=== PATIENT | female | born 1955 | race Caucasian/White ===

== ENCOUNTER → 2019-02-03 | Outpatient (CLI) | payer BC ==
--- NOTE | 2019-02-06 09:27 | Diagnostic Imaging Report ---
INDICATION: Routine screening. COMPARISON: 01/27/2018 and 09/10/2016. TECHNIQUE: 2D and 3D bilateral screening mammography was performed with CAD. FINDINGS: Scattered fibroglandular densities are identified bilaterally. Circumscribed nodular densities in the right breast are stable and consistent with benign etiologies. No spiculated mass or malignant appearing microcalcifications are seen. The axillae are unremarkable. IMPRESSION: No mammographic features suspicious for malignancy are identified. ACR BI-RADS Category 2: Benign findings. Result letter will be mailed to the patient. Note: At least 10% of breast cancer is not imaged by mammography. Dictated by: Dictated on workstation # [id number]
== END ==
LOC: RAD 10:25
PROVIDERS: ATTEND Obstetrics & Gynecology
DX: Z12.31 Encounter for screening mammogram for malignant neoplasm of breast (principal)
CPT/HCPCS: 77067

== ENCOUNTER → 2020-02-06 | Outpatient (CLI) | payer BC, MEDICARE ==
--- NOTE | 2020-02-06 11:52 | Diagnostic Imaging Report ---
INDICATION: Postmenopausal female COMPARISON: None FINDINGS: AP Spine L1-L4: [BMD (g/cm2): 1.050] [T-Score: -1.2] [Z-Score: -0.8] [BMD Previous: NA] [BMD % Change: NA] LT Hip Neck: [BMD (g/cm2): 0.799] [T-Score: -1.7] [Z-Score: -1.0] LT Hip Total: [BMD (g/cm2):0.875] [T-Score:-1.1] [Z-Score: -0.7] [BMD Previous: NA] [BMD % Change: NA] RT Hip Neck: [BMD (g/cm2):0.774] [T-Score:-1.9] [Z-Score:-1.2] RT Hip Total: [BMD (g/cm2):0.848] [T-score:-1.3] [Z-Score:-0.9] [BMD Previous:NA] [BMD % Change:NA] *Indicates significant change from prior examination based on 95% confidence level. World Health Organization criteria for BMD interpretation classify patients as Normal (T-score at or above -1.0), Osteopenic (T-score between -1.0 and -2.5) or Osteoporotic (T-score at or below -2.5). LIMITATIONS AND MODIFICATION: None. FRACTURE RISK (FRAX SCORE): The ten year probability of (%): Major Osteoporotic Fracture: [9.4] Hip Fracture: [1.3] IMPRESSION: 1. Osteopenia (Low bone mass). 2. Baseline examination. 3. See below National Osteoporosis Foundation guidelines on when to potentially initiate pharmacologic therapy. Based on the National Osteoporosis Foundation Guidelines, pharmacologic treatment should be initiated in any of the following, unless clinical conditions suggest otherwise: * Any patient with prior fragility fracture of the hip or vertebrae. A spine fracture indicates 5X risk for subsequent spine fracture and 2X risk for subsequent hip fracture. * Osteoporosis (T-score <-2.5). * Postmenopausal women and men age 50 and older with low bone mass/osteopenia (T-score between -1.0 and -2.5) by DXA and 10-year major osteoporotic fracture greater than 20% or a 10-year probability of hip fracture greater than 3%. These fracture risks are supplied above in the FRAX score, if applicable. * Clinician judgement and/or patient preferences may indicate treatment for people with 10-year fracture probabilities above or below these levels. Dictated by: Dictated on workstation # [id number]
--- NOTE | 2020-02-06 14:33 | Diagnostic Imaging Report ---
INDICATION: Routine screening. COMPARISON: 02/03/2019 and 01/27/2018. TECHNIQUE: 2D and 3D bilateral screening mammography was performed with CAD. FINDINGS: Both breasts are heterogeneously dense, limiting the sensitivity of mammography. The nodular densities noted in both breasts appear to be stable. No spiculated mass or malignant appearing microcalcifications are seen. The axillae are unremarkable. IMPRESSION: No mammographic features suspicious for malignancy are identified. ACR BI-RADS Category 2: Benign findings. Result letter will be mailed to the patient. Note: At least 10% of breast cancer is not imaged by mammography. Dictated by: Dictated on workstation # [id number]
== END ==
LOC: RAD 09:30
PROVIDERS: ATTEND Family Medicine
DX: Z12.31 Encounter for screening mammogram for malignant neoplasm of breast (principal); M85.80 Other specified disorders of bone density and structure, unspecified site; Z78.0 Asymptomatic menopausal state
CPT/HCPCS: 77063; 77067; 77080

== ENCOUNTER → 2020-02-08 | Outpatient (CLI) | payer MEDICARE, OTHER ==
--- NOTE | 2020-02-08 08:45 | Diagnostic Imaging Report ---
INDICATION: Right upper quadrant abdominal pain Gallbladder sonography performed in the routine fashion. The liver shows normal echogenicity with no focal lesions. Gallbladder is unremarkable with no stones or wall thickening. Common duct cannot be visualized, do not appear dilated. The intrahepatic ducts are not dilated. Pancreas is partially obscured by overlying gas. Visualized portions of the aorta and IVC are normal. Right kidney measured 10.8 cm in length and was unremarkable. Portal vein is patent with hepatopetal flow. Sonographic Singh sign was negative. There is no ascites. IMPRESSION: Unremarkable gallbladder sonography. Dictated by: Dictated on workstation # [id number]
== END ==
LOC: RAD 07:15
PROVIDERS: ATTEND Family Medicine
DX: R10.11 Right upper quadrant pain (principal)
CPT/HCPCS: 76705

== ENCOUNTER 2020-04-15 05:43 | Outpatient (RCR) | payer MEDICARE, OTHER ==
[~2020-04-15] VITALS: Ht 167.6 cm; Wt 106.8 kg
[2020-04-15] MEDS ORDERED: LISI-556 PO (11:09)
[2020-04-15] MEDS ORDERED: LEVO25TA2 PO (11:09)
== END 2020-04-18 09:08 | disposition home or self-care (01) ==
LOC: PREOP 05:43
PROVIDERS: ATTEND Surgery
DX: Z01.812 Encounter for preprocedural laboratory examination (principal); Z12.11 Encounter for screening for malignant neoplasm of colon; K21.9 Gastro-esophageal reflux disease without esophagitis; Z20.822 Contact with and (suspected) exposure to COVID-19
CPT/HCPCS: 87635

== ENCOUNTER 2020-04-22 07:17 | Day surgery (SDC) | payer MEDICARE, OTHER ==
[~2020-04-22] VITALS: Ht 167.6 cm; Wt 106.8 kg
[~2020-04-22 07:17] MED LIST: LEVO25TA2 PO; LISI-556 PO
[2020-04-22] MEDS ORDERED: LACTATED RINGERS 1,000 ML IV ONE (07:32)
[2020-04-22] MEDS ORDERED: LACTATED RINGERS 1,000 ML IV STA (07:39)
[2020-04-22] MEDS ORDERED: HURRICAINE EXT TUBE (BENZOCAINE) XX PRN (07:45)
[2020-04-22] MEDS ORDERED: LIDOCAINE JELLY 2% 6 ML SYRINGE MM PRN (07:45)
[2020-04-22 07:47] VITALS: BP 140/69
--- NOTE | 2020-04-22 08:19 | Progress Note-Pre Operative ---
Pre-Operative Progress Note H&P Reviewed The H&P was reviewed, patient examined and no changes noted. Time Seen by Provider: 08:13 Date H&P Reviewed: Apr 22, 2020 Time H&P Reviewed: 08:14 Pre-Operative Diagnosis: GERD, Change in bowel, Screening colon ANDREW SÁNCHEZ DO Apr 22, 2020 08:19
[2020-04-22] MEDS ORDERED: PROPOFOL INJECTION 50 ML IV ONE (08:39)
[2020-04-22] MEDS ORDERED: HURRICAINE EXT TUBE (BENZOCAINE) ONE (08:50)
[2020-04-22] MEDS ORDERED: proPOfol 200 MG/20 ML (DIPRIVAN) VIAL IV ONE (09:04)
[2020-04-22 09:25] VITALS: BP 149/71
--- NOTE | 2020-04-22 09:27 | Progress Note-Post Operative ---
Post-Operative Progess Note Surgeon (s)/Vault Clerk (s) Surgeon ANDREW SÁNCHEZ DO Vault Clerk: TEMITOPE Garvin Pre-Operative Diagnosis GERD, Change in bowel, Screening colon Post-Operative Diagnosis Gastritis Esophagitis Hiatal Hernia Diverticula Int hemorrhoids Procedure & Operative Findings Date of Procedure 04/22/20 Procedure Performed/Findings EGD with bx Colon Anesthesia Type IV sedation by AUTOMOTIVE TECHNOLOGY INSTRUCTOR Estimated Blood Loss Estimated blood loss (mL): scant Specimens/Packing Specimens Removed antral bx body of stomach bx GE jxn bx ANDREW SÁNCHEZ DO Apr 22, 2020 09:27
--- NOTE | 2020-04-22 09:28 | Endoscopy Discharge Instruct ---
Endo Procedure/Findings Findings 1.: Gastritis 2.: Fatima's Esophagus 3.: Diverticulosis 4.: Internal Hemorrhoids Discharge Instructions - Activity: You might feel a little sleepy until tomorrow. This is due to the medicine you received to relax you. Until tomorrow, you should: NOT drive a car, operate machinery or power tools. NOT drink any alcoholic beverages. NOT make any important decisions or sign importortant papers. Do not return to work until tomorrow, unless otherwise instructed. Resume previous activities tomorrow. Diet: Start by taking liquids. If you tolerate liquids, advance to solid food. 1.: Colonscopy in 10 years, EGD in 1 year Notify Physician - If you experience excessive bleeding, unusual abdominal pain, fever, or chest pain, contact your doctor immediately. ANDREW SÁNCHEZ DO Apr 22, 2020 09:28
[2020-04-22 09:30] VITALS: BP 139/62
[2020-04-22 09:35] VITALS: BP 137/62
[2020-04-22 09:55] VITALS: BP 135/62
[2020-04-22 09:58] VITALS: BP 135/62
--- NOTE | 2020-04-22 11:52 | Anesthesia-General Post-Op ---
MAC Patient Condition Mental Status/LOC: Same as Preop Cardiovascular: Satisfactory Nausea/Vomiting: Absent Respiratory: Satisfactory Pain: Controlled Complications: Absent Post Op Complications Complications None Follow Up Care/Instructions Patient Instructions None needed. Anesthesiology Discharge Order Discharge Order Patient is doing well, no complaints, stable vital signs, no apparent adverse anesthesia problems. No complications reported per nursing. JEFERSON HERMAN CRNA Apr 22, 2020 11:52
--- NOTE | 2020-04-22 23:22 | OPERATIVE REPORT ---
DATE OF SERVICE: 04/22/2020 PREOPERATIVE DIAGNOSES: Gastroesophageal reflux disease, change in bowel habits as well as screening colonoscopy. POSTOPERATIVE DIAGNOSES: 1. Gastritis. 2. Esophagitis. 3. Hiatal hernia. 4. Diverticula. 5. Internal hemorrhoids. PROCEDURES: 1. EGD with biopsy. 2. Colonoscopy. SURGEON: Riley Escamilla DO BEAD SUPERVISOR: Génesis Hammer MS4. ANESTHESIA: IV sedation by the ELECTRICAL AND INSTRUMENTATION MANAGER. SPECIMEN: Biopsy from the antrum, biopsy from the esophagus as well as from the body of the stomach. BLOOD LOSS: Scant. FLUIDS: Per anesthesia. POSTOPERATIVE CONDITION: Stable. INDICATION FOR PROCEDURE: The patient is a 64-year-old female who has been having some GERD symptoms. She has had change in bowel habits and needs a screening colonoscopy. FINDINGS: The patient had some gastritis, esophagitis and hiatal hernia was about 3 or 4 mm opening in the colon, she had some diverticula and internal hemorrhoids, but nothing else seen. PROCEDURE NOTE: After informed consent was obtained, the patient was brought to the endoscopy suite, placed in bed in left lateral decubitus position. She was administered IV sedation by the ELECTRICAL AND INSTRUMENTATION MANAGER who then monitored her vitals the entire time, heart rate, blood pressure and pulse ox. Started with the EGD, placing scope down the mouth through the esophagus into the stomach. Upon going down, noted some changes at the GE junction, took a picture. Pushed all the way into the duodenum and got to the second and third portion of duodenum, looked normal, took a picture. Pulled back, saw some mild inflammation of the antrum, did a biopsy of the antrum and then did a biopsy of body of stomach, retroflexed the scope, saw a small hiatal hernia and then pulled the scope up into the GE junction, did a biopsy here. Suctioned all the air out of the stomach and then pulled the scope up the esophagus and out the mouth. Switched camera, switched gloves, went down below, started the colonoscopy. Pushed all the way into about [address] in, noted some diverticula, able to get all the way to the cecum, took a picture of appendiceal orifice, then noted the ileocecal valve and then slowly withdrew the scope insufflating to look circumferentially at the mcneil looking at the cecum, up the ascending colon to the hepatic flexure, then down the transverse colon to the splenic flexure, into the descending colon down into the sigmoid and finally into the rectum, retroflexed in the rectal vault, saw some minimal internal hemorrhoids, probably grade I, took a picture of these and then removed the scope. The patient tolerated the procedure, recovered in endoscopy suite. Job ID: [id number] DocumentID: [id number] Dictated Date: 04/22/2020 14:44:52 Spray Worker Date: 04/22/2020 23:21:21 Dictated By: RILEY ESCAMILLA DO
== END 2020-04-22 10:15 | disposition home or self-care (01) ==
LOC: ENDO 07:17
PROVIDERS: ATTEND Surgery
DX: Z12.11 Encounter for screening for malignant neoplasm of colon (principal); K29.50 Unspecified chronic gastritis without bleeding; K21.00 Gastro-esophageal reflux disease with esophagitis, without bleeding; K44.9 Diaphragmatic hernia without obstruction or gangrene; K64.8 Other hemorrhoids; K57.30 Diverticulosis of large intestine without perforation or abscess without bleeding; I10 Essential (primary) hypertension; K21.9 Gastro-esophageal reflux disease without esophagitis; E03.9 Hypothyroidism, unspecified; Z79.899 Other long term (current) drug therapy; Z88.2 Allergy status to sulfonamides
CPT/HCPCS: 43239; G0121; 88305

== ENCOUNTER → 2021-02-17 | Outpatient (CLI) | payer MEDICARE, OTHER ==
[~2021-02-17] MED LIST changes: -LISI-556 PO; +LISI-729 PO
--- NOTE | 2021-02-17 15:18 | Diagnostic Imaging Report ---
INDICATION: Routine screening. COMPARISON: 02/06/2020 and 02/03/2019. TECHNIQUE: 2D and 3D bilateral screening mammography was performed with CAD. FINDINGS: Both breasts are heterogeneously dense, limiting the sensitivity of mammography. Nodular densities in the right breast appear stable. No new mass or malignant appearing microcalcifications are seen. The axillae are unremarkable. IMPRESSION: No mammographic features suspicious for malignancy are identified. ACR BI-RADS Category 2: Benign findings. Result letter will be mailed to the patient. Note: At least 10% of breast cancer is not imaged by mammography. Dictated by: Dictated on workstation # [id number]
== END ==
LOC: RAD 14:30
PROVIDERS: ATTEND Nurse Practitioner Family
DX: Z12.31 Encounter for screening mammogram for malignant neoplasm of breast (principal)
CPT/HCPCS: 77063; 77067